=== PATIENT | male | born 1970 | race Caucasian/White ===

== ENCOUNTER → 2016-07-20 | Outpatient (REF) ==
--- NOTE | 2016-07-20 10:44 | DI ---
EXAM: CHEST FRONTAL AND LATERAL VIEWS HISTORY: [facility] annual screening. COMPARISON: 06/23/2015 FINDINGS: Heart size and mediastinal contour within normal limits. No acute infiltrates. Naheed l vascularity with no pleural fluid or pneumothorax. The bony thorax has no acute finding. IMPRESSION: No acute process.
== END ==
LOC: RAD 09:32
DX: Z02.89 Encounter for other administrative examinations (principal)

== ENCOUNTER 2018-03-15 07:24 | Outpatient (CLI) ==
--- NOTE | 2018-03-15 08:25 | US ---
EXAM: Thyroid ultrasound. History: Abnormal thyroid function tests. Technique: Multiple sonographic images through the thyroid gland were obtained. Color duplex Dopple r was used to interrogate vascular flow. Findings: The right lobe of the thyroid measures 3.4 cm x 1.6 cm x 1.5 cm and demonstrates heterogeneous echote xture. 1.6 cm x 0.9 cm x 1.5 cm solid nodule within the right thyroid. The thyroid isthmus measures 0.2 cm in thickness. The left lobe of the thyroid measures 3.2 cm x 2.2 cm x 1.1 cm and demonstrates heterogeneous echotex ture with no discrete nodule identified. No extrathyroidal masses are identified. The thyroid gland is slightly hypervascular. Impression: 1. Dominant 1.6 cm solid nodule within the right thyroid. Tissue sampling can be considered. 2. Hypervascular thyroid. Correlate for thyroiditis.
== END 2018-03-15 07:25 | disposition home or self-care (01) ==
LOC: RAD 07:24
PROVIDERS: ATTEND Family Medicine
DX: R94.6 Abnormal results of thyroid function studies (principal)